=== PATIENT | male | born 1965 | race Caucasian/White ===

== ENCOUNTER 2017-06-03 09:25 | Emergency (ER) | payer BC, OTHER ==
[~2017-06-03] VITALS: Ht 175.3 cm; Wt 98.3 kg
[~2017-06-03 09:25] MED LIST: SERT-234 PO; WLLSRUNK; XNXUNK; [UNRECOGNIZED DRUG - OTHER]
[2017-06-03 09:31] VITALS: TEMP 36.5; Ht 175.3 cm; Wt 98.3 kg
[2017-06-03] MEDS ORDERED: QUET1TAB34 PO (09:35)
[2017-06-03] MEDS ORDERED: SERT-234 PO (09:35)
[2017-06-03] MEDS ORDERED: CEPHALEXIN MONOHYDRATE 250 MG CAP PO ONE (10:00)
--- NOTE | 2017-06-03 10:15 | DIAGNOSTIC IMAGING REPORT ---
R WRIST MIN 3 VIEWS ROUTINE CLINICAL HISTORY: Right wrist pain COMPARISON: None. DISCUSSION: No acute fractures are visualized. On the lateral view, there is a small 2 mm bony density located dorsal to the mid aspect of the carpal bones. This likely relates to an old injury. There is also equivocal old navicular deformity. IMPRESSION: Old posttraumatic change. No acute fractures are visualized. Electronically signed by: Marcello Rahman M.D. 06/03/2017 10:14 AM Dictated Date/Time: 06/03/2017 10:13 AM
[2017-06-03] MEDS ORDERED: OXYC-90 PO (10:43)
[2017-06-03] MEDS ORDERED: CEPH500C PO (10:43)
[2017-06-03 10:55] VITALS: BP 132/89; PULSE 68; O2SAT 97
--- NOTE | 2017-06-03 16:08 | EMERGENCY ROOM VISIT NOTE ---
History First contact with patient: 09:32 Chief Complaint: WRIST PAIN Stated Complaint: SWELLING AND PAIN IN R WRIST RADIATING TO ARM History of Present Illness The patient is a 51 year old male who presents to the Emergency Room with complaints of right wrist pain and swelling. The patient reports no recent injuries to the wrist. 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 He reports having multiple orthopedic injuries in the past. Not recall any significant right wrist injuries. The patient denies any history of gout. He denies any pain extending into the right forearm or elbow region. He did apply a heating pad to the arm last night , and reports that the arm looks red. He denies any fevers or chills, and rates his discomfort an 8 out of 10. She is [id number]. Review of Systems 10 system review was performed and was negative except for pertinent positives and negatives as indicated in history of present illness Past Medical/Surgical History Medical Problems: (1) No significant past medical history Surgical Problems: (1) No history of previous surgery Family History No significant family history Social History Smoking Status: Never Smoker Alcohol Use: none Drug Use: none Marital Status: Housing Status: lives with family Occupation Status: employed Current/Historical Medications Scheduled Cephalexin Monohydrate (Keflex), 500 MG PO QID Quetiapine Fumarate (Seroquel), 100 MG PO HS Sertraline (Zoloft), 250 MG PO DAILY Scheduled PRN Oxycodone Ir (Roxicodone Ir), 1-2 TAB PO Q4H PRN for Pain Physical Exam Vital Signs Date Time Temp Pulse Resp B/P (MAP) Pulse Ox O2 Delivery O2 Flow Rate FiO2 06/03/17 10:55 68 20 132/89 97 06/03/17 09:31 36.5 87 18 153/90 94 Room Air Physical Exam CONSTITUTIONAL: Healthy and well nourished. Alert and oriented X 3 with positive affect. Patient appears in mild to moderate discomfort. HEENT: Normocephalic, atraumatic. Pupils equal, round and reactive. NECK: Full active range of motion without discomfort. RESPIRATORY: Clear to auscultation bilaterally with no wheezing, crackles, rhonchi or stridor. CARDIOVASCULAR: Regular rate and rhythm with no murmurs, rubs or gallops. MUSCULOSKELETAL: Examination of the right wrist shows notable edema and dorsal erythema along the wrist and distal forearm region. He also has a mildly erythematous appearance on the volar forearm that looks more like a thermal injury. The patient has notable and diffuse tenderness to palpation about the wrist with increased warmth to palpation. He does not have any significantly worsening pain with passive flexion or extension of the fingers, and no fusiform digital swelling is noted. Capillary refill is less than 2 seconds. INTEGUMENTARY: No rash or other significant dermatologic conditions noted. NEUROLOGIC: Right hand and fingers are sensory intact. Medical Decision & Procedures ER Provider Diagnostic Interpretation: My interpretation of right wrist x-rays shows an age indeterminate avulsion over the dorsal wrist, and navicular deformity. Radiologist report is as follows: R WRIST MIN 3 VIEWS ROUTINE CLINICAL HISTORY: Right wrist pain COMPARISON: None. DISCUSSION: No acute fractures are visualized. On the lateral view, there is a small 2 mm bony density located dorsal to the mid aspect of the carpal bones. This likely relates to an old injury. There is also equivocal old navicular deformity. IMPRESSION: Old posttraumatic change. No acute fractures are visualized. Medications Administered Medications (Trade) Dose Ordered Sig/Agrrison Route Start Time Stop Time Status Last Admin Dose Admin Cephalexin Monohydrate (Keflex Cap) 500 mg NOW ONCE PO 06/03/17 10:00 06/03/17 10:01 DC 06/03/17 09:53 500 MG ED Course Patient history and physical exam were performed. Nurse's notes were reviewed. Vital signs were reviewed and were normal. I did elect to treat the patient with Keflex 500 mg orally. X-rays of the right wrist does show what appears to be chronic changes. The patient also does not have any focal discomfort of the anatomic snuffbox. Because the patient denies any recent trauma or injury, I therefore did suspect that these x-ray findings are chronic. A wrist brace was applied. The patient was provided prescriptions for Keflex and OxyIR 5 mg. The patient was encouraged to take ibuprofen for baseline pain relief. He was encouraged to follow-up with his PCP for further reevaluation and management, returning to the emergency department over the holiday with any progressively worsening appearance or symptoms. The patient was happy with plan of care, voiced understanding of all discharge instructions, and rated his discomfort a 4 out of 10 at the conclusion of my exam. It is noted that the patient does have a mildly elevated blood pressure, and was instructed to follow-up with his PCP for further blood pressure recheck. Medical Decision Differentials considered included cellulitis, gout and fracture. The patient again denies any recent trauma, therefore I do not suspect an acute injury. Worse case scenario would certainly be an infection, therefore the reason why the patient will be covered with antibiotic prescriptions. The patient will follow-up with his PCP for further management, and was instructed to return to the emergency department as needed. [facility] Drug Monitoring Program Search Results: patient reviewed within database, no issues identified Medication Reconcilliation Current Medication List: was personally reviewed by me Blood Pressure Screening Patient's blood pressure: Elevated blood pressure Blood pressure disposition: Referred to PCP Impression Primary Impression: Right wrist cellulitis Additional Impression: Elevated blood pressure reading Departure Information Prescriptions Oxycodone Ir (Roxicodone Ir) 5 Mg Tab 1-2 TAB PO Q4H Y for Pain, #24 TAB For Initial Treatment Prov: Mariano Medley PA 06/03/17 Cephalexin Monohydrate (Keflex) 500 Mg Cap 500 MG PO QID for 7 Days, #28 CAP Prov: Mariano Medley PA 06/03/17 Referrals Juan Napier M.D. (PCP) Patient Instructions My [facility] Problem Qualifiers
== END 2017-06-03 10:59 | disposition home or self-care (01) ==
LOC: C.EDB 09:25
DX: L03.113 Cellulitis of right upper limb (principal); R03.0 Elevated blood-pressure reading, without diagnosis of hypertension; Z79.899 Other long term (current) drug therapy

== ENCOUNTER → 2017-07-28 | Outpatient (CLI) | payer OTHER ==
[~2017-07-28] MED LIST changes: +OXYC1TAB3 PO; +QUET1TAB34 PO; -WLLSRUNK; -XNXUNK; -[UNRECOGNIZED DRUG - OTHER]
--- NOTE | 2017-07-28 12:14 | DIAGNOSTIC IMAGING REPORT ---
LEFT SHOULDER 3 VIEWS HISTORY: L SHOULDER INJURY COMPARISON: None. FINDINGS: No fracture or dislocation within the left shoulder. The left clavicle is intact. Mild AC joint arthrosis and mild degenerative changes at the glenohumeral joint. Old, healed left lower rib fractures. Soft tissues are unremarkable. No radiopaque foreign bodies. IMPRESSION: No fracture or dislocation within the left shoulder. Electronically signed by: Eliot Payan M.D. 07/28/2017 12:12 PM Dictated Date/Time: 07/28/2017 12:11 PM
== END ==
LOC: C.RAD 11:39
PROVIDERS: ATTEND Family Medicine
DX: S49.92XA Unspecified injury of left shoulder and upper arm, initial encounter (principal); X58.XXXA Exposure to other specified factors, initial encounter